=== PATIENT | female | born 1975 | race African-American/Black ===

== ENCOUNTER 2017-09-22 20:02 | Inpatient (IN) | payer OTHER ==
[~2017-09-22] VITALS: Ht 165.1 cm; Wt 75.3 kg
[2017-09-22 21:28] LABS: BASOPHILS % 0.4 % (0.0-2.0); EOSINOPHILS % 0.6 % (0.0-5.0); HEMATOCRIT. 37.8 % (36.0-48.0); HEMOGLOBIN. 12.9 g/dL (12.0-16.0); LYMPHOCYTES % 14.2 % (20.0-50.0); MEAN CORPUSCULAR HEMOGLOBIN 30.7 pg (28.0-32.0); MEAN CORPUSCULAR VOLUME 90.3 fL (81.0-99.0); MEAN PLATELET VOLUME 10.2 fl (7.4-10.4); MONOCYTES % 10.5 % (2.0-8.0); NEUTROPHILS % 74.3 % (40.0-76.0); PLATELET 260 x1000/uL (130-400); RED BLOOD CELL COUNT 4.19 mill/uL (4.2-5.4); RED CELL DISTRIBUTION WIDTH 15.1 % (11.6-14.6)
[2017-09-22 21:30] LABS: CHLORIDE 100 mEq/L (98-107)
[2017-09-22 21:32] LABS: INR 1.1; PROTHROMBIN TIME 11.6 sec (9.4-11.6)
[2017-09-22 21:35] LABS: ETHANOL BLOOD < 10 mg/dL
[2017-09-22 22:46] LABS: CLARITY URINE CLEAR (CLEAR); COLOR URINE DARK YELLOW (YELLOW); KETONES URINE 2+ (NEGATIVE); LEUKOCYTE ESTERASE URINE TRACE (NEGATIVE); NITRITE URINE NEGATIVE (NEGATIVE); OCCULT BLOOD URINE NEGATIVE (NEGATIVE); PH URINE 5.5 (4.5-8.0); PROTEIN URINE NEGATIVE (NEGATIVE); SPECIFIC GRAVITY URINE 1.016 (1.005-1.030)
[2017-09-22 22:58] LABS: *AMPHETAMINES SCREEN URINE NEGATIVE (NEGATIVE); *BARBITURATES SCREEN URINE NEGATIVE (NEGATIVE); *BENZODIAZEPINES SCREEN URINE NEGATIVE (NEGATIVE); *COCAINE SCREEN URINE NEGATIVE (NEGATIVE); METHADONE URINE SCREEN NEGATIVE (NEGATIVE); OPIATES URINE SCREEN NEGATIVE (NEGATIVE); PHENCYCLIDINE URINE SCREEN NEGATIVE (NEGATIVE)
[2017-09-22 22:59] LABS: CANNABINOID URINE SCREEN NEGATIVE (NEGATIVE)
[2017-09-23] VITALS (7 sets, daily range): BP systolic 121–149; BP diastolic 76–91
[2017-09-23] MEDS ORDERED: SODIUM CHLORIDE 0.9% 1,000 ML IV ONE (01:30)
[2017-09-23] MEDS ORDERED: KCL 20MEQ/100ML PREMIX 100 ML IV ONE (01:30)
[2017-09-23] MEDS ORDERED: DILTIAZEM HCL 5MG/ML 10ML VIAL IV NR (08:36)
[2017-09-23] MEDS ORDERED: ONDANSETRON HCL 4MG/2ML VIAL IV PRN (08:45)
[2017-09-23] MEDS ORDERED: DEXT 5%/0.45% NACL 1000ML 1,000 ML IV SCH (08:45)
[2017-09-23] MEDS ORDERED: DILTIAZEM HCL 5MG/ML 5ML VIAL IV PRN (09:00)
[2017-09-23] MEDS: METOPROLOL TARTRATE 50MG TABLET PO SCH ×2 (09:00→20:33)
[2017-09-23] MEDS ORDERED: CEFTRIAXONE 1 G PREMIX 50 ML IV SCH ×2 (09:00→10:00)
[2017-09-23] MEDS ORDERED: ONDANSETRON 4MG ODT PO PRN (09:15)
[2017-09-23 11:28] LABS: AMMONIA < 10 uMol/L (<32)
[2017-09-23 11:29] LABS: LDL CHOLESTEROL 129 mg/dL (5-100)
[2017-09-23 11:31] LABS: HDL CHOLESTEROL 48 mg/dL (40-59)
[2017-09-23] MEDS ORDERED: ATORVASTATIN CALCIUM 10MG TABLET PO SCH (21:00)
== END 2017-09-23 23:00 | disposition short-term general hospital (02) | DRG 93 ==
LOC: ER 21:33 → 8WST 09-23 01:30 → EDBEDREQSVC 09-23 01:32 → EDBEDREQ 09-23 01:32 → EDBEDREQTM 09-23 01:32 → ENRESERV 09-23 06:49
PROVIDERS: ADMIT Internal Medicine; ATTEND Internal Medicine
DX: G92 Toxic encephalopathy (principal); K21.9 Gastro-esophageal reflux disease without esophagitis; E87.6 Hypokalemia; K59.00 Constipation, unspecified; E78.5 Hyperlipidemia, unspecified; E86.9 Volume depletion, unspecified; Z98.891 History of uterine scar from previous surgery; Z87.440 Personal history of urinary (tract) infections
CPT/HCPCS: 36415; 51702; 70450; 70551; 71045; 76700; 80053; 80061; 80305; 81003; 81025; 82140; 82962; 83036; 83605; 83721; 83735; 84443; 84484; 85025; 85610; 87040; 87086; 93005; 93880; 96365; 96366; 99285; G0482; J0696; J3480; J3490; J7030; J7040

== ENCOUNTER 2017-09-29 15:51 | Inpatient (IN) | payer OTHER ==
[~2017-09-29] VITALS: Ht 165.1 cm; Wt 75.1 kg
[2017-09-29] MEDS ORDERED: ACETAMINOPHEN 325MG TABLET PO STA (16:24)
[2017-09-29] MEDS ORDERED: SODIUM CHLORIDE 0.9% 1,000 ML IV ONE (16:24)
[2017-09-29] MEDS ORDERED: CEFTRIAXONE 1 G PREMIX 50 ML IV ONE (16:30)
[2017-09-29 17:37] LABS: BASOPHILS % 0.2 % (0.0-2.0); EOSINOPHILS % 1.8 % (0.0-5.0); HEMATOCRIT. 32.3 % (36.0-48.0); LYMPHOCYTES % 26.1 % (20.0-50.0); MEAN CORPUSCULAR HEMOGLOBIN 31.1 pg (28.0-32.0); MEAN CORPUSCULAR VOLUME 91.1 fL (81.0-99.0); MEAN PLATELET VOLUME 10.4 fl (7.4-10.4); MONOCYTES % 7.2 % (2.0-8.0); NEUTROPHILS % 64.7 % (40.0-76.0); PLATELET 322 x1000/uL (130-400); RED BLOOD CELL COUNT 3.54 mill/uL (4.2-5.4); RED CELL DISTRIBUTION WIDTH 15.9 % (11.6-14.6)
[2017-09-29 17:43] LABS: CHLORIDE 106 mEq/L (98-107); INR 1.1
[2017-09-29 17:48] LABS: ETHANOL BLOOD < 10 mg/dL
[2017-09-29 17:52] LABS: CARBAMAZEPINE < 0.5 ug/mL (4-12); PHENOBARBITAL < 2.1 ug/mL (15.0-40.0); VALPROIC ACID < 3.0 ug/mL (50-100)
[2017-09-29 17:53] LABS: CREATINE KINASE 187 IU/L (26-192)
[2017-09-29 17:57] LABS: AMMONIA 19 uMol/L (<32)
[2017-09-29 20:14] LABS: CLARITY URINE CLEAR (CLEAR); COLOR URINE YELLOW (YELLOW); KETONES URINE NEGATIVE (NEGATIVE); LEUKOCYTE ESTERASE URINE TRACE (NEGATIVE); NITRITE URINE NEGATIVE (NEGATIVE); OCCULT BLOOD URINE 2+ (NEGATIVE); PROTEIN URINE NEGATIVE (NEGATIVE)
[2017-09-29 20:32] LABS: *AMPHETAMINES SCREEN URINE NEGATIVE (NEGATIVE); *BARBITURATES SCREEN URINE NEGATIVE (NEGATIVE); *BENZODIAZEPINES SCREEN URINE NEGATIVE (NEGATIVE); *COCAINE SCREEN URINE NEGATIVE (NEGATIVE); METHADONE URINE SCREEN NEGATIVE (NEGATIVE)
[2017-09-29 20:33] LABS: CANNABINOID URINE SCREEN NEGATIVE (NEGATIVE); OPIATES URINE SCREEN NEGATIVE (NEGATIVE); PHENCYCLIDINE URINE SCREEN NEGATIVE (NEGATIVE)
[2017-09-30] VITALS (7 sets, daily range): BP systolic 109–139; BP diastolic 63–90
[2017-09-30] MEDS ORDERED: SUCR1TAB PO (00:35)
[2017-09-30] MEDS ORDERED: ONDA4TAB8 PO (00:35)
[2017-09-30] MEDS ORDERED: OMEP20CA10 PO (00:35)
[2017-09-30] MEDS ORDERED: ONDANSETRON 4MG ODT PO PRN (00:45)
[2017-09-30] MEDS ORDERED: LORAZEPAM 2MG/ML CPJ IV PRN (00:45)
[2017-09-30] MEDS ORDERED: ACETAMINOPHEN 650MG SUPP PR PRN (00:45)
[2017-09-30] MEDS ORDERED: MECL-127 PO (00:50)
[2017-09-30] MEDS: DEXT 5%/0.45% NACL 1000ML 1,000 ML IV SCH ×2 (01:30→14:33)
== END 2017-09-30 21:45 | disposition short-term general hospital (02) | DRG 189 ==
LOC: ER 15:51 → 5WST 21:01 → EDBEDREQSVC 21:05 → EDBEDREQ 21:05 → ENRESERV 21:46 → SUPCPDRO 09-30 00:22
PROVIDERS: ADMIT Hospitalist; ATTEND Hospitalist
DX: J96.00 Acute respiratory failure, unspecified whether with hypoxia or hypercapnia (principal); G93.49 Other encephalopathy; N39.0 Urinary tract infection, site not specified; E66.9 Obesity, unspecified; E86.0 Dehydration; H51.8 Other specified disorders of binocular movement; K21.9 Gastro-esophageal reflux disease without esophagitis; K59.00 Constipation, unspecified; R32 Unspecified urinary incontinence; Z68.27 Body mass index [BMI] 27.0-27.9, adult; Z87.440 Personal history of urinary (tract) infections
CPT/HCPCS: 36415; 51702; 71045; 80053; 80156; 80165; 80184; 80185; 80305; 81003; 82140; 82550; 83605; 83880; 84443; 84484; 85025; 85610; 87040; 87086; 93005; 96365; 96366; 99285; G0482; J0696; J7030; A4315